=== PATIENT | male | born 1945 | race Hispanic/Latino ===

== ENCOUNTER → 2021-05-01 | Outpatient (CLI) | payer MEDICARE | END | disposition home or self-care (01) | LOC: SHCH 14:01 | PROVIDERS: ATTEND Internal Medicine Cardiovascular Disease | DX: R55 Syncope and collapse (principal); I10 Essential (primary) hypertension; E66.9 Obesity, unspecified; E11.9 Type 2 diabetes mellitus without complications | CPT/HCPCS: 93306; 93356 ==

== ENCOUNTER → 2021-05-06 | Outpatient (CLI) | payer MEDICARE ==
[~2021-05-06] VITALS: Ht 177.8 cm; Wt 113.4 kg
[~2021-05-06] MED LIST: REGADENOSON 0.4 MG/5 ML PF SYG IVP SCH
== END | disposition home or self-care (01) ==
LOC: EDUNIT# 08:00 → SHCH 08:03
PROVIDERS: ATTEND Internal Medicine Cardiovascular Disease
DX: R06.09 Other forms of dyspnea (principal); R07.9 Chest pain, unspecified
CPT/HCPCS: 78452; 93017; 96374; A9500 ×2; J2785

== ENCOUNTER → 2023-10-26 | Outpatient (CLI) | payer OTHER, MEDICARE ==
[2023-10-26 10:05] LABS: CREATININE 1.5 mg/dL (0.5-1.5)
== END | disposition home or self-care (01) ==
LOC: LAB 09:00
PROVIDERS: ATTEND Nurse Practitioner Family
DX: E87.5 Hyperkalemia (principal)
CPT/HCPCS: 36415; 80048

== ENCOUNTER → 2024-07-08 | Outpatient (CLI) | payer OTHER, MEDICARE | END | disposition home or self-care (01) | LOC: RAH 12:50 | PROVIDERS: ATTEND Family Medicine | DX: I73.9 Peripheral vascular disease, unspecified (principal) | CPT/HCPCS: 93925 ==